=== PATIENT | male | born 1995 | race Caucasian/White ===

== ENCOUNTER 2018-04-07 23:28 | Emergency (ER) | payer OTHER ==
[~2018-04-07] VITALS: Ht 182.9 cm; Wt 122.6 kg
[2018-04-07 23:47] VITALS: Ht 182.9 cm; Wt 122.6 kg
[2018-04-08 01:57] VITALS: BP 149/101
== END 2018-04-08 01:57 | disposition home or self-care (01) ==
LOC: ED 23:28
DX: S62.304A Unspecified fracture of fourth metacarpal bone, right hand, initial encounter for closed fracture (principal); W22.8XXA Striking against or struck by other objects, initial encounter; Y93.89 Activity, other specified; Y92.89 Other specified places as the place of occurrence of the external cause; Y99.8 Other external cause status